=== PATIENT | female | born 2000 ===

== ENCOUNTER 2022-09-17 19:02 | Outpatient (REF) | payer MEDICAID, SELFPAY ==
[2022-09-17 20:00] LABS: Influenza A PCR NEGATIVE; Influenza B PCR NEGATIVE; Resp Syncy Virus RNA Qual PCR NEGATIVE (Negative); SARS COV2 PCR INHOUSE NEGATIVE
== END 2022-09-17 19:03 | disposition home or self-care (01) ==
LOC: HO.HHCLNP 19:02
PROVIDERS: Visit Provider Nurse Practitioner Primary Care
DX: J02.9 Acute pharyngitis, unspecified (principal); Z20.2 Contact with and (suspected) exposure to infections with a predominantly sexual mode of transmission
CPT/HCPCS: 0241U; 87070

== ENCOUNTER 2022-10-08 11:35 | Outpatient (REF) | payer MEDICAID, SELFPAY ==
[2022-10-08 13:23] LABS: MANUAL DIFF FLAG NO
[2022-10-08 13:52] LABS: Basophils Percent Auto 0.5 %; Eosinophils Absolute Auto 0.3 X10*3/uL; Eosinophils Percent Auto 4.1 %; Hematocrit 39.2 %; Hemoglobin 13.1 g/dl; Imm Gran Abs Auto 0.03 X10*3/uL (0.00-0.03); Imm Gran Pct Auto 0.4 % (0.0-0.4); Lymphocytes Absolute Auto 2.7 X10*3/uL; Lymphocytes Percent Auto 32.1 %; Mean Corpuscular HGB Conc 33.4 g/dl; Mean Corpuscular Hemoglobin 28.6 pg; Mean Corpuscular Volume 85.6 fL; Mean Platelet Volume 9.4 fL (9.4-12.4); Monocytes Absolute Auto 0.5 X10*3/uL; Monocytes Percent Auto 6.5 %; Neutrophils Absolute Auto 4.7 x10*3/uL; Neutrophils Percent Auto 56.4 %; Platelet Count 441 X10*3/uL; Red Blood Count 4.58 X10*6/uL; White Blood Count 8.3 X10*3/uL
[2022-10-08 14:24] LABS: TSH reflex Free T4 1.73 uIU/mL
== END 2022-10-08 11:36 | disposition home or self-care (01) ==
LOC: HO.HHCL 11:35
PROVIDERS: Visit Provider Family Medicine
DX: N93.9 Abnormal uterine and vaginal bleeding, unspecified (principal)
CPT/HCPCS: 36415; 84443; 85025

== ENCOUNTER 2022-10-08 11:50 | Outpatient (REF) | payer MEDICAID, SELFPAY ==
--- NOTE | ~2022-10-08 | XR_ITS ---
EXAMINATION: XR FOOT, RIGHT CLINICAL INFORMATION: Chronic pain without injury. COMPARISON: None available. TECHNIQUE: AP, lateral, and oblique views of the right foot. FINDINGS: The bones and soft tissues are normal. No fracture. Alignment is anatomic. Joint spaces are maintained. XR/XR foot LT min 3V IMPRESSION: Normal right foot. EXAMINATION: XR FOOT, LEFT CLINICAL INFORMATION: Chronic pain without injury. COMPARISON: None available. TECHNIQUE: AP, lateral, and oblique views of the left foot. FINDINGS: The bones and soft tissues are normal. No fracture. Alignment is anatomic. Joint spaces are maintained. IMPRESSION: Normal left foot.
--- NOTE | ~2022-10-08 | XR_ITS ---
EXAMINATION: XR FOOT, RIGHT CLINICAL INFORMATION: Chronic pain without injury. COMPARISON: None available. TECHNIQUE: AP, lateral, and oblique views of the right foot. FINDINGS: The bones and soft tissues are normal. No fracture. Alignment is anatomic. Joint spaces are maintained. XR/XR foot RT min 3V IMPRESSION: Normal right foot. EXAMINATION: XR FOOT, LEFT CLINICAL INFORMATION: Chronic pain without injury. COMPARISON: None available. TECHNIQUE: AP, lateral, and oblique views of the left foot. FINDINGS: The bones and soft tissues are normal. No fracture. Alignment is anatomic. Joint spaces are maintained. IMPRESSION: Normal left foot.
--- NOTE | ~2022-10-08 | XR_ITS ---
EXAMINATION: XR KNEE, RIGHT CLINICAL INFORMATION: Chronic pain without injury. COMPARISON: None available. TECHNIQUE: AP, lateral and tunnel views of the right knee are submitted. FINDINGS: No fracture or joint effusion. Alignment is anatomic. Joint spaces are maintained. No abnormal soft tissue calcification. XR/XR knee LT 3V IMPRESSION: Normal right knee. EXAMINATION: XR KNEE, LEFT CLINICAL INFORMATION: Chronic pain without injury. COMPARISON: None available. TECHNIQUE: AP, lateral and tunnel views of the left knee are submitted. FINDINGS: No fracture or joint effusion. Alignment is anatomic. Joint spaces are maintained. No abnormal soft tissue calcification. IMPRESSION: Normal left knee.
--- NOTE | ~2022-10-08 | XR_ITS ---
EXAMINATION: XR KNEE, RIGHT CLINICAL INFORMATION: Chronic pain without injury. COMPARISON: None available. TECHNIQUE: AP, lateral and tunnel views of the right knee are submitted. FINDINGS: No fracture or joint effusion. Alignment is anatomic. Joint spaces are maintained. No abnormal soft tissue calcification. XR/XR knee RT 3V IMPRESSION: Normal right knee. EXAMINATION: XR KNEE, LEFT CLINICAL INFORMATION: Chronic pain without injury. COMPARISON: None available. TECHNIQUE: AP, lateral and tunnel views of the left knee are submitted. FINDINGS: No fracture or joint effusion. Alignment is anatomic. Joint spaces are maintained. No abnormal soft tissue calcification. IMPRESSION: Normal left knee.
== END 2022-10-08 11:51 | disposition home or self-care (01) ==
LOC: HO.HHCX 11:50
PROVIDERS: Visit Provider Family Medicine
DX: M25.561 Pain in right knee (principal); M25.562 Pain in left knee; G89.29 Other chronic pain; M79.671 Pain in right foot; M79.672 Pain in left foot
CPT/HCPCS: 73562; 73630

== ENCOUNTER 2023-04-15 11:20 | Outpatient (REF) | payer MEDICAID, SELFPAY ==
[2023-04-15 13:04] LABS: MANUAL DIFF FLAG NO
[2023-04-15 13:20] LABS: Basophils Absolute Auto 0.1 X10*3/uL (0.0-0.2); Basophils Percent Auto 0.6 % (0-2); Eosinophils Absolute Auto 0.3 X10*3/uL (0.0-0.4); Eosinophils Percent Auto 3.9 % (0-4); Hematocrit 40.7 % (37.0-47.0); Hemoglobin 13.4 g/dl (12.0-16.0); Imm Gran Abs Auto 0.05 X10*3/uL (0.00-0.03); Imm Gran Pct Auto 0.6 % (0.0-0.4); Lymphocytes Absolute Auto 2.5 X10*3/uL (1.2-4.9); Lymphocytes Percent Auto 29.7 % (20-40); Mean Corpuscular HGB Conc 32.9 g/dl (31.0-35.0); Mean Corpuscular Hemoglobin 27.4 pg (27.0-33.0); Mean Corpuscular Volume 83.2 fL (80.0-98.0); Mean Platelet Volume 9.2 fL (9.4-12.3); Monocytes Absolute Auto 0.5 X10*3/uL (0.1-1.2); Neutrophils Percent Auto 59.2 % (45-73); Platelet Count 427 X10*3/uL (160-400); Red Blood Count 4.89 X10*6/uL (4.20-5.50); Red Cell Distribution Width 13.6 % (11.0-16.0); White Blood Count 8.4 X10*3/uL (4.8-10.8)
[2023-04-15 13:35] LABS: Estimated Average Glucose 100 mg/dL; Hemoglobin A1c % 5.1 % (<6.0)
[2023-04-15 13:47] LABS: Alanine Aminotransferase 153 U/L (0-31); Albumin Level 4.5 g/dL (3.5-5.0); Alkaline Phosphatase 78 U/L (39-117); Anion Gap 13 (12-20); Aspartate Amino Transferase 92 U/L (5-31); Bilirubin Total 0.3 mg/dL (0.0-1.0); Blood Urea Nitrogen 10 mg/dL (9-16); Calcium 10.3 mg/dL (8.4-10.2); Carbon Dioxide 27 mmol/L (22-29); Chloride 103 mmol/L (96-108); Cholesterol 221 mg/dL (<200); Estimated Glomerular Filt Rate > 60; Glucose Random 97 mg/dL (60-115); HDL Cholesterol 42 mg/dL (>40); LDL Cholesterol Calculated 154 mg/dL (<100); Potassium 4.2 mmol/L (3.3-5.1); Sodium 139 mmol/L (135-145); Total Protein 8.3 g/dL (6.5-8.0); Triglycerides 129 mg/dL (<150)
[2023-04-15 14:02] LABS: TSH reflex Free T4 2.36 uIU/mL (0.32-4.0)
[2023-04-15 14:24] LABS: Reflex LDLD? No
[2023-04-15 15:23] LABS: CT PCR NOT DETECTED (Not Detect.); NG PCR NOT DETECTED (Not Detect.)
[2023-04-16 07:52] LABS: Syphilis Screen Nonreactive (Nonreactive)
[2023-04-16 08:05] LABS: HBS Num1 0.52 mIU/mL (0-7.99); HBc Num1 0.11 S/CO (0.00-0.79); HBsAGNum1 0.34 S/CO (0.00-0.99); HIV AB/AG Nonreactive (Nonreactive); HIV Num 1 0.05 S/CO (0.00-0.99); Hepatitis B Core Antibody Nonreactive (Nonreactive); Hepatitis B Surface Antigen Negative (Negative); ~HepC Num1 0.32 S/CO (0.00-0.79); ~Hepatitis B Surface Antibody NONREACTIVE (Nonreactive); ~Hepatitis C Antibody Nonreactive (Nonreactive)
[2023-04-16 08:17] LABS: Hepatitis A Antibody IgG REACTIVE (Nonreactive); ~Hepatitis A Antibody IgG 10.42 S/CO (0.00-0.99)
== END 2023-04-15 11:21 | disposition home or self-care (01) ==
LOC: HO.HHCL 11:20
PROVIDERS: Visit Provider Family Medicine
DX: N93.9 Abnormal uterine and vaginal bleeding, unspecified (principal); R03.0 Elevated blood-pressure reading, without diagnosis of hypertension; R74.01 Elevation of levels of liver transaminase levels; Z11.3 Encounter for screening for infections with a predominantly sexual mode of transmission
CPT/HCPCS: 0353U; 36415; 80053; 80061; 83036; 84443; 85025; 86704; 86706; 86708; 86780; 86803; 87340; 87389